=== PATIENT | male | born 1985 | race Caucasian/White ===

== ENCOUNTER 2024-07-21 20:20 | Emergency (ER) | payer BC ==
[2024-07-21] MEDS: Lidocaine 2% 20 ML MDV ONE (21:16)
[2024-07-21] MEDS ORDERED: Sodium Chloride 0.9% 10 ML Syringe FLUSH PRN (21:32)
[2024-07-21] MEDS: Iopamidol 612 MG/ML 100 ML Bottle IVPUSH ONE (21:34)
[2024-07-21 21:48] LABS: BASOPHILS PERCENT AUTO 0.1 % (0.0-1.0); EOSINOPHILS PERCENT AUTO 0.1 % (1.0-3.0); HEMATOCRIT 48.4 % (40.0-54.0); HEMOGLOBIN 16.5 g/dL (14.0-18.0); MEAN CORPUSCULAR HEMOGLOBIN 29.3 pg (27.0-34.0); MEAN CORPUSCULAR HGB CONC 34.1 g/dL (33.0-35.0); MONOCYTES PERCENT AUTO 7.3 % (2-8); NEUTROPHILS PERCENT AUTO 78.5 % (42.2-75.2); PLATELET COUNT,PLT 205 10^3/uL (150-450); RED BLOOD CELL COUNT 5.63 10^6/uL (4.6-6.2); WHITE BLOOD CELL COUNT,WBC 9.4 10^3/uL (5.0-10.0)
[2024-07-21] MEDS: Sodium Chloride 0.9% 1,000 ML IV ONE (22:00)
[2024-07-21 22:05] LABS: A/G RATIO 1.1; ALANINE AMINOTRANSFERASE,ALT 37 U/L (16-63); ALBUMIN 4.1 g/dL (3.4-5.0); ALKALINE PHOSPHATASE 87 U/L (46-116); ASPARTATE AMNIOTRANSFERASE,AST 17 U/L (15-37); BILIRUBIN TOTAL 0.6 mg/dL (0.2-1.0); BLOOD UREA NITROGEN,BUN 11 mg/dL (7-18); CARBON DIOXIDE,CO2 29 mmol/L (21-32); CHLORIDE,CL 100 mmol/L (98-107); EST CRCL DRUG DOSING (CG) 112.09 mL/min; GLUCOSE RANDOM 104 mg/dL (70-99); PROTEIN TOTAL,TP 7.7 g/dL (6.4-8.2); SODIUM,NA 139 mmol/L (136-145)
[2024-07-21 22:08] LABS: C-REACTIVE PROTEIN < 0.50 ng/dL (<=0.50); ESTIMATED GFR 100 mL/min (>=60)
[2024-07-21] MEDS: SUMAtriptan 6 MG/0.5 ML SDV SUBCUT ONE (22:56)
[2024-07-21] MEDS: Ketorolac 30 MG/ML SDV IVPUSH ONE (22:56)
== END 2024-07-22 00:41 | disposition home or self-care (01) ==
LOC: DL.ED 20:20
DX: G43.909 Migraine, unspecified, not intractable, without status migrainosus (principal); G44.209 Tension-type headache, unspecified, not intractable
CPT/HCPCS: 36415; 70470; 80053; 85025; 86140; 96361; 96372; 96374; 99284; J1885; J3030; J7030; Q9967; J3490